=== PATIENT | male | born 2000 | race Caucasian/White ===

== ENCOUNTER 2020-07-10 12:14 | Emergency (ER) | payer OTHER ==
[~2020-07-10] VITALS: Ht 185.4 cm; Wt 77.3 kg
[2020-07-10 12:21] VITALS: TEMP 99.2
[2020-07-10] MEDS ORDERED: ADDERALL20 MG PO (12:37)
[2020-07-10 13:24] LABS: HEMATOCRIT 48.3 % (42.0-52.0); HEMOGLOBIN 16.7 g/dl (13.5-18.0); MEAN CELL VOLUME 92 fl (80.0-100.0); MEAN CORPUSCULAR HEMOGLOBIN 32 pg (27.0-31.0); MEAN CORPUSCULAR HGB CONC 35 g/dl (33.0-37.0); MEAN PLATELET VOLUME 11.1 fl (7.4-10.4); PLATELET COUNT 243 K/mm3 (130-400); RED BLOOD COUNT 5.27 M/mm3 (4.20-5.60); REDCELL DISTRIBUTION WIDTH-CV 12.2 % (11.5-14.5)
[2020-07-10 13:37] LABS: ALBUMIN 4.8 gm/dL (3.5-5.0); BILIRUBIN,TOTAL 1.1 mg/dL (0.0-1.0); C-REACTIVE PROTEIN 1.2 mg/dL (0.0-0.9); CALCIUM 9.2 mg/dL (8.4-10.2); CREATININE, serum 1.21 (0.66-1.25); POTASSIUM 4.4 mmol/L (3.4-5.0); TOTAL PROTEIN 7.7 gm/dL (6.4-8.2)
[2020-07-10 13:45] VITALS: BP 137/96; PULSE 103
[2020-07-10 14:12] LABS: BAND 18 % (0-10); LYMPHOCYTE 2 % (20.0-51.0); NEUTROPHILS 70 % (42.0-75.2); PLATELET ESTIMATE NORMAL (NORMAL)
[2020-07-10 14:16] LABS: ERYTHROCYTE SEDIMENTATION RATE 1 mm/hr (0-15)
== END 2020-07-10 14:10 | disposition short-term general hospital (02) ==
LOC: COL.ER 12:14
PROVIDERS: Physician Assistant
DX: T34.822A Frostbite with tissue necrosis of left foot, initial encounter (principal); T34.821A Frostbite with tissue necrosis of right foot, initial encounter; F10.129 Alcohol abuse with intoxication, unspecified
CPT/HCPCS: J2270; J7050; J7120